=== PATIENT | male | born 1980 | race Caucasian/White ===

== ENCOUNTER 2017-08-13 16:04 | Emergency (ER) | payer SELFPAY ==
[2017-08-13 16:05] VITALS: BP 135/86; PULSE 95; RESP 17; TEMP 37.1; O2SAT 94; BMI 42.0
[2017-08-13 16:50] VITALS: BP 129/80; BP 136/91; BP 137/83; PULSE 75; PULSE 77; PULSE 90
[2017-08-13] MEDS: 0.9% Normal Saline 1,000 ML 150 ML IV (16:51)
[2017-08-13 17:13] LABS: Absolute Lymphocyte Count 2.56 X10^3/ul (0.83-4.51); Absolute Neutrophil Count 4.2 X10^3/uL (2.0-7.7); Basophil# 0.02 X10^3/uL; Basophil% 0.3 % (0-1); Eosinophil# 0.25 X10^3/uL; Eosinophils% 3.4 % (0-5); Hematocrit 44.2 % (40-54); Hemoglobin 15.6 g/dl (13.0-16.5); Lymphocyte # 2.56 X10^3/ul (4.0); Lymphocyte % 34.4 % (19-41); Mean Corp Hgb Conc 35.3 g/gl (32-36); Mean Corpuscular Hgb 29.9 pg (27.0-32.0); Mean Corpuscular Volume 84.8 fL (80-94); Mean Platelet Vol. 10.2 fl (6.2-12.0); Monocyte# 0.36 X10^3/uL; Monocyte% 4.8 % (0-10); Neutrophil # 4.22 X10^3/uL (2.7-7.7); Neutrophil % 56.6 % (47-70); Platelet Count 195 K/mm3 (150-450); RBC Distribution Width CV 12.9 % (11.6-14.6); RBC Distribution Width SD 39.7 fl (35.1-43.9); Red Blood Count 5.21 M/mm3 (4.6-6.2); White Blood Count 7.5 K/mm3 (4.4-11.0)
[2017-08-13 17:14] LABS: POSITIVE COUNT NO; POSITIVE DIFFERENTIAL NO; POSITIVE MORPHOLOGY NO
--- NOTE | 2017-08-13 18:08 | ED.VISSUMM ---
- ER Visit Summary Date of Service: 08/13/17 Chief Complaint: [High blood sugar and rectal bleeding] History of Present Illness: The patient is a 36 M [resents to the emergency department with chief complaint of elevated blood sugars for several months. Patient has not been taken his metformin because of some insurance issues. Patient saw nurse practitioner who started him back on his metformin yesterday 1000 mg daily and patient noted that his blood sugar despite the Metformin was elevated at 466 today. Patient also mentions that he has been having rectal bleeding for several months. Patient has it with every bowel movement. He denies any abdominal pain. Patient is never had a colonoscopy. Patient does not have a family history of colon cancer. Patient also with history of hypertension however noncompliant with meds.] Physical Examination: [HEENT-PERRLA, EOMI. Cranial nerves II through XII grossly intact. TMs clear. Mucous membranes moist. No adenopathy. Cardiovascular-regular rate and rhythm without murmur or ectopy Lungs-clear to auscultation, chest wall stable without crepitus or subcu emphysema Abdomen-normoactive bowel sounds, soft, nontender, no rebound or rigidity, no peritoneal signs. Rectal exam-no masses noted. No fissures noted. No hemorrhoids noted. No masses palpated in the rectal vault. No stool in the rectal vault Extremities-intact ?4, normal range of motion, normal pulses, atraumatic] Test Results: [CBC with differential showed a white count of 7.5, hemoglobin 15.6, hematocrit 44, platelets 195.] Chemistries unremarkable. Glucose was 400. LFTs unremarkable. Hemoccult was positive. Emergency Department Course and Treatment: [Patient was offered another dose of metformin in the emergency department however he states he has his medications in the truck and will take it once he is discharged.] Treatment Plan: [I discussed case with Chica Borrero who is the nurse practitioner for [facility]. Patient will be seen by them tomorrow to further help manage his diabetic medications. Patient advised to watch his intake of sugary foods. Patient advised to exercise and lose some weight. Patient also will be referred to GI on-call for history of rectal bleeding which is stable. Patient tells me he also has had history of radiculitis in the past.] Disposition: [Discharged to home in stable condition] Impression: [Hyperglycemia-chronic Lower GI bleed-stable] This note was generated with [employer] dictation software. It may contain incorrect words, spelling, and punctuation that were not noted in review of the chart prior to signing ED Disposition - Plan for ED Patient: Chief Complaint: Hyperglycemia Referrals: Tiffanie Borrero, EVAPORATOR REPAIRER-C [Primary Care Provider] -
--- NOTE | 2017-08-13 18:11 | ED.DCSUM_ITS ---
- ER Visit Summary Date of Service: 08/13/17 Chief Complaint: [High blood sugar and rectal bleeding] History of Present Illness: The patient is a 36 M [resents to the emergency department with chief complaint of elevated blood sugars for several months. Patient has not been taken his metformin because of some insurance issues. Patient saw nurse practitioner who started him back on his metformin yesterday 1000 mg daily and patient noted that his blood sugar despite the Metformin was elevated at 466 today. Patient also mentions that he has been having rectal bleeding for several months. Patient has it with every bowel movement. He denies any abdominal pain. Patient is never had a colonoscopy. Patient does not have a family history of colon cancer. Patient also with history of hypertension however noncompliant with meds.] Physical Examination: [HEENT-PERRLA, EOMI. Cranial nerves II through XII grossly intact. TMs clear. Mucous membranes moist. No adenopathy. Cardiovascular-regular rate and rhythm without murmur or ectopy Lungs-clear to auscultation, chest wall stable without crepitus or subcu emphysema Abdomen-normoactive bowel sounds, soft, nontender, no rebound or rigidity, no peritoneal signs. Rectal exam-no masses noted. No fissures noted. No hemorrhoids noted. No masses palpated in the rectal vault. No stool in the rectal vault Extremities-intact ?4, normal range of motion, normal pulses, atraumatic] Test Results: [CBC with differential showed a white count of 7.5, hemoglobin 15.6, hematocrit 44, platelets 195.] Chemistries unremarkable. Glucose was 400. LFTs unremarkable. Hemoccult was positive. Emergency Department Course and Treatment: [Patient was offered another dose of metformin in the emergency department however he states he has his medications in the truck and will take it once he is discharged.] Treatment Plan: [I discussed case with Chica Borrero who is the nurse practitioner for [facility]. Patient will be seen by them tomorrow to further help manage his diabetic medications. Patient advised to watch his intake of sugary foods. Patient advised to exercise and lose some weight. Patient also will be referred to GI on-call for history of rectal bleeding which is stable. Patient tells me he also has had history of radiculitis in the past.] Disposition: [Discharged to home in stable condition] Impression: [Hyperglycemia-chronic Lower GI bleed-stable] This note was generated with [employer] dictation software. It may contain incorrect words, spelling, and punctuation that were not noted in review of the chart prior to signing ED Disposition - Plan for ED Patient: Chief Complaint: Hyperglycemia Referrals: Tiffanie Borrero, HOST HOSTESS-C [Primary Care Provider] -
[2017-08-13 18:43] LABS: ALB/GLOB Ratio 1.1 RATIO (0.9-2.4); AST(SGOT) 31 U/L (15-37); Alanine Aminotransfer ALT/SGPT 38 U/L (16-61); Albumin, Serum 3.4 g/dL (3.2-5.0); Alkaline Phosphatase 86 U/L (45-117); Anion Gap 9 (5-15); BUN 13 mg/dL (7-18); BUN/Creat Ratio 12.9 RATIO (10-20); Chloride 98 mmol/L (98-107); Creatinine, Serum 1.01 mg/dL (0.70-1.30); EST Glomerular Filtration Rate 88 mL/min (>60); Est Glom Filt Rate - Afr Amer 107 mL/min (>60); Estimated Creatinine Clearance 90.37 ml/min; Globulin 3.1 g/dL (2.2-4.2); Glucose 400 mg/dL (74-106); Potassium 4.1 mmol/L (3.5-5.1); Protein, Total 6.5 g/dL (6.4-8.2); Sodium Level 132 mmol/L (136-145)
[2017-08-13 19:01] VITALS: BP 132/85; PULSE 75; RESP 16; O2SAT 97
--- NOTE | 2017-08-13 19:08 | ED.DEP ---
ED Disposition - Plan for ED Patient: Chief Complaint: Hyperglycemia Instructions: ED Hyperglycemia Diabetic Referrals: Tiffanie Borrero NP-C [Primary Care Provider] - 1 Day Augustine Ryan MD [STAFF PHYSICIAN] - 3-5 Days Additional Instructions: Call for appointment tomorrow
[2017-08-13 19:23] VITALS: BP 132/85; PULSE 75; RESP 16; O2SAT 97
== END 2017-08-13 19:26 | disposition home or self-care (01) ==
PROVIDERS: Emergency Provider Emergency Medicine; Family Provider Nurse Practitioner Family; PCP Nurse Practitioner Family
DX: E11.65 Type 2 diabetes mellitus with hyperglycemia (principal); K92.2 Gastrointestinal hemorrhage, unspecified; I10 Essential (primary) hypertension; Z91.14 Patient's other noncompliance with medication regimen; Z72.0 Tobacco use; Z79.84 Long term (current) use of oral hypoglycemic drugs; Z79.899 Other long term (current) drug therapy
CPT/HCPCS: 80053; 82274; 85025; 86850; 86900; 86901; 96360; 96361; 99284; J7030; A4216